=== PATIENT | female | born 1960 | race Caucasian/White ===

== ENCOUNTER 2019-08-12 08:13 | Day surgery (SDC) | payer MEDICAID ==
[2019-08-12] MEDS ORDERED: Sodium Chloride 0.9% 1,000 ML IV SCH (08:45)
[2019-08-12] MEDS ORDERED: Propofol 200 MG/20 ML SDV ONE (09:29)
[2019-08-12] MEDS ORDERED: Midazolam 1 MG/ML 2 ML SDV ONE (09:30)
[2019-08-12] MEDS ORDERED: fentaNYL 100 MCG/2 ML SDV ONE (09:30)
[2019-08-12] MEDS ORDERED: ceFAZolin 2 GM in Premix Bag 1 BAG IV ONE (09:30)
--- NOTE | 2019-08-12 17:54 | OR ---
DATE OF PROCEDURE: 08/12/2019 SURGEON: Christos Mcelroy MD PROCEDURES: 1. Colonoscopy. 2. Endoscopic hemorrhoid banding. COMPLICATIONS: None. PLANER STONE: None. PREOPERATIVE DIAGNOSIS: Blood in stool. POSTOPERATIVE DIAGNOSIS: Blood in stool. RISKS: Risks, benefits, alternatives, and limitations including, but not limited to, infection, bleeding, and perforation were explained to the patient who wished to proceed. PROCEDURE IN DETAIL: The patient was placed in a left lateral decubitus position. Digital rectal exam was performed which showed mild external hemorrhoids which were non-thrombosed. The scope was then introduced and advanced atraumatically to the ileocecal valve. The ileocecal valve was cannulated. No evidence of inflammation of the ileum. The scope was brought back to the ascending, transverse, descending colon, and retroflexed. No diverticulosis. No polyps. No old or new blood. The patient did have an internal hemorrhoid, which most likely was the etiology behind the bleeding. Therefore, the scope was then exchanged for an endoscopic hemorrhoid banding system. Two bands were applied across the offending hemorrhoid. The patient tolerated the procedure well. Christos Mcelroy MD /[id number]
--- OUTSIDE RECORDS SUMMARY | 2019-08-16 11:45 | XMSREPORT | Referral Summary ---
:1960 Author Organization [facility] and [facility] s Address [facility] [place] [address] Care Team Providers Name Role Phone Aj Samano MD Primary Care Provider Rashawn Samano MD Attributed Provider Reason for Referral Comprehensive Primary Care Plus (Routine) Status Reason Specialty Diagnoses / Referred By Referred To Procedures Contact Contact New Request General Surgery Diagnoses Hematochezia Aj Samano, [facility] [address] [place] [address] [place] [phone] Phone: Fax: Scheduling Instructions This is an electronic referral. Transitions of Care (Routine) Status Reason Specialty Diagnoses / Referred By Referred To Procedures Contact Contact New Request Patient Diagnoses Hematochezia Aj Samano Chi Preference D, MD [facility], [address] [place] [place], [place] [address] [address] Phone: [place] [phone] [place] [address] Fax: Reason for Visit Reason Comments bloody stools, bleeding Encounter Details Date Type Department Care Team Description 08/02/2019 Office Visit [place] Amos, Ciro donald (Primary [facility]DIV[facility] Dx) [address] [facility] [address] [place], [place] [address] [phone] [id number] Allergies Active Allergy Reactions Severity Noted Date Comments Leflunomide Other (Specify in Comments) 03/30/2019 Nausea,vomiting Methotrexate Other (Specify in Comments) 03/30/2019 Nausea, vomiting documented as of this encounter (statuses as of 08/02/2019) Medications Medication Sig Dispensed Refills Start Date End Date Status gabapentin (NEURONTIN) Take 800 mg by 0 03/18/2019 Active 300 mg capsule mouth 1 time per day Take 2 capsules twice daily and 3 capsules at bedtime. escitalopram (LEXAPRO) Take 10 mg by 0 02/15/2019 Active 10 mg tablet mouth 1 time per day Multiple Take 1 tablet by 0 Act carine Vitamins-Minerals mouth 1 time per (MULTIVITAMIN day THERAPEUTIC WITH MINERALS) tablet vitamin D3, Take 2,000 Units 0 A ctive cholecalciferol, 1000 by mouth 1 time units tablet per day acetaminophen Take 1,000 mg by 0 Active (TYLENOL) 500 mg mouth Every 4 tablet hours as needed omeprazole (PRILOSEC) Take 1 capsule 60 capsule 1 05/16/2019 Active 20 mg (20 mg) by mouth capsuleIndications: 1 time a day in Epigastric pain the morning meloxicam (MOBIC) 15 Take 1 tablet (15 90 tablet 1 07/25/2019 Active mg tabletIndications: mg) by mouth 1 Rheumatoid arthritis time per day involving multiple sites with positive rheumatoid factor (HCC) magnesium oxide 250 MG Take 250 mg by 0 Active TABS mouth calcium carbonate 600 Take 600 mg by 0 Active mg tablet mouth 2 times a day with meals Zinc (ZINC) 50 MG CAPS Take 50 mg by 0 Active mouth lactobacillus Take 1 capsule by 0 Active (CULTURELLE) capsule mouth documented as of this encounter (statuses as of 08/02/2019) Active Problems Problem Noted Date Rheumatoid arthritis involving multiple sites with pos itive rheumatoid 03/30/2019 factor documented as of this encounter (statuses as of 08/02/2019) Immunizations Name Administration Dates Next Due Influenza Vaccine,unspecified 11/25/2014, 11/17/2013 TDAP 07/06/2013 documented as of this encounter Social History Tobacco Use Types Packs/Day Years Used Date Former Smoker Smokeless Tobacco: Never Used Sex Assigned at Date Recorded Not on file Job Start Date Occupation Industry Not on file Not on file Not on file Travel History Travel Start Travel End No recent travel history available. documented as of this encounter Last Filed Vital Signs Vital Sign Reading Time Taken Comments Blood Pressure 124/80 08/02/2019 9:56 AM CDT Pulse 83 08/02/2019 9:56 AM CDT Temperature 36.1 C (96.9 F) 08/02/2019 9:56 AM CDT Respiratory Rate - - Oxygen Saturation 98% 08/02/2019 9:56 AM CDT Inhaled Oxygen Concentration - - Weight 76.7 kg (169 lb 1.6 oz) 08/02/2019 9:56 AM CDT Height 158.8 cm (5' 2.5") 08/02/2019 9:56 AM CDT Body Mass Index 30.44 08/02/2019 9:56 AM CDT documented in this encounter Progress Notes Aj Samano MD - 08/02/2019 10:15 AM CDT Assessment / Plan Hematochezia - CLINIC REFERRAL ENDOSCOPY NON ONE CHART - CLINIC REFERRAL GENERAL SURGERY ONE CHART Plan: I suspect the bleeding may well be from the hemorrhoids whether internal or external source. However given her clinical picture, I do think colonoscopy is going to be necessary to rule out other etiologies particularly if we are going to look at the surgical consultation regarding possible hemorrhoidsurgery. Patient is agreeable. We will set up colonoscopy and a subsequent general surgery opinion regardingpossible surgical hemorrhoid intervention. Medications Outpatient Medications Prior to Visit Medication Sig Dispense Refill magnesium oxide 250 MG TABS Take 250 mg by mouth calcium carbonate 600 mg tablet Take 600 mg by mouth 2 times a day with meals Zinc (ZINC) 50 MG CAPS Take 50 mg by mouth lactobacillus (CULTURELLE) capsule Take 1 capsule by mouth meloxicam (MOBIC) 15 mg tablet Take 1 tablet (15 mg) by mouth 1 time per day 90 tablet 1 Multiple Vitamins-Minerals (MULTIVITAMIN THERAPEUTIC WITH MINERALS) tablet Take 1 tablet by mouth 1 time per day vitamin D3, cholecalciferol, 1000 units tablet Take 2,000 Units by mouth 1 time per day acetaminophen (TYLENOL) 500 mg tablet Take 1,000 mg by mouth Every 4 hours as needed omeprazole (PRILOSEC) 20 mg capsule Take 1 capsule (20 mg) by mouth 1 time a day in the morning 60 capsule 1 gabapentin (NEURONTIN) 300 mg capsule Take 800 mg by mouth 1 time per day Take 2 capsules twice daily and 3 capsules at bedtime. escitalopram (LEXAPRO) 10 mg tablet Take 10 mg by mouth 1 time per day No facility-administered medications prior to visit. Allergies Allergies Allergen Reactions Leflunomide Other (Specify in Comments) Nausea,vomiting Methotrexate Other (Specify in Comments) Nausea, vomiting Problem List Patient Active Problem List Diagnosis Rheumatoid arthritis involving multiple sites with positive rheumatoid factor (HCC) History And presents today for review of scattered episodes of significant amount of bright red blood with bowel movements. She states the first episode occurred about 3-4 weeks ago. She had painless bowel movement with bright red blood she states the blood seemed to fill the toilet bowl. She had bright red blood on her toilet tissue. She had a couple episodes like that and then she had no further bleeding for about 2-3 weeks and then yesterday morning she had another episode of painless bright red blood. She also noticed a little darker blood with some clots when she wiped after bowel movement. Pain with bowel movement She does note some lower abdominal vague discomfort and cramping and bloating at times. This is notnecessarily associated with the passage of blood. No fevers or chills She has had some intermittent loose stools aren't alternating with formed stools over the last monthor 2. Physical Exam BP 124/80 Pulse 83 Temp 96.9 F (36.1 C) (Temporal) Ht 1.588 m (5' 2.5") Wt 76.7 kg (169 lb 1.6 oz) SpO2 98% BMI 30.44 kg/m2|| Abdomen is soft and nontender with no bloating or distention appreciated today Perianal exam reveals large hemorrhoid presence. Rectal exam was attempted but was too uncomfortable to accomplish. The hemorrhoids themselves did not seem to be particularly tender to palpation externally. documented in this encounter Plan of Treatment Name Type Priority Associated Diagnoses Order S chedule CLINIC REFERRAL ENDOSCOPY Referral Routine Hematochezia Or dered: 08/02/2019 NON ONE CHART CLINIC REFERRAL GENERAL Referral Routine Hematochezia Orde red: 08/02/2019 SURGERY ONE CHART documented as of this encounter Visit Diagnoses Diagnosis Hematochezia - Primary Blood in stool documented in this encounter
== END 2019-08-12 11:35 | disposition home or self-care (01) ==
LOC: JP.SDS 08:13
PROVIDERS: ATTEND Surgery
DX: K64.4 Residual hemorrhoidal skin tags (principal); K64.8 Other hemorrhoids; E66.9 Obesity, unspecified; K21.9 Gastro-esophageal reflux disease without esophagitis; Z88.2 Allergy status to sulfonamides; Z68.29 Body mass index [BMI] 29.0-29.9, adult
CPT/HCPCS: 45398; J0690; J2250; J2704; J3010; J7030

== ENCOUNTER 2021-10-27 12:20 | Emergency (ER) | payer BC, MEDICAID | END 2021-10-27 13:45 | disposition home or self-care (01) | LOC: JP.ED 12:20 | DX: R05.9 Cough, unspecified (principal); U09.9 Post COVID-19 condition, unspecified; Z88.8 Allergy status to other drugs, medicaments and biological substances; Z88.2 Allergy status to sulfonamides; Z79.899 Other long term (current) drug therapy; Z86.16 Personal history of COVID-19; Z90.49 Acquired absence of other specified parts of digestive tract; Z90.710 Acquired absence of both cervix and uterus; Z87.891 Personal history of nicotine dependence | CPT/HCPCS: 99283 ==

== ENCOUNTER 2022-02-05 11:52 | Emergency (ER) | payer BC ==
[2022-02-05] MEDS ORDERED: Dexamethasone 4 MG/ML SDV PO ONE (12:42)
== END 2022-02-05 13:00 | disposition home or self-care (01) ==
LOC: JP.ED 11:52
DX: U07.1 COVID-19 (principal); M19.90 Unspecified osteoarthritis, unspecified site; Z87.891 Personal history of nicotine dependence; Z88.8 Allergy status to other drugs, medicaments and biological substances; Z88.2 Allergy status to sulfonamides; Z79.899 Other long term (current) drug therapy
CPT/HCPCS: 99284; J8540

== ENCOUNTER 2023-02-23 07:56 | Emergency (ER) | payer BC ==
[2023-02-23] MEDS ORDERED: Codeine/guaiFENesin 10-100 MG/5 ML Syrup 5 ML Cup PO ONE (09:21)
[2023-02-23] MEDS ORDERED: Sodium Chloride 0.9% 1,000 ML IV SCH (09:30)
[2023-02-23 09:35] LABS: BASOPHILS ABSOLUTE AUTO 0.03 K/uL (0.00-0.10); BASOPHILS PERCENT AUTO 0.3 % (0.1-1.3); EOSINOPHILS ABSOLUTE AUTO 0.09 K/uL (0.00-0.40); EOSINOPHILS PERCENT AUTO 0.8 % (0.0-5.4); HEMATOCRIT 40.5 % (34.3-46.0); IMMATURE GRAN ABSOLUTE AUTO 0.04 K/uL (0.00-0.23); IMMATURE GRAN PERCENT AUTO 0.4 % (0.0-0.7); LYMPHOCYTES ABSOLUTE AUTO 1.69 K/uL (0.8-3.3); LYMPHOCYTES PERCENT AUTO 15.6 % (11.4-47.7); MEAN CORPUSCULAR HEMOGLOBIN 32.9 pg (31.6-35.5); MEAN CORPUSCULAR HGB CONC 34.6 g/dL (31.6-35.5); MEAN CORPUSCULAR VOLUME 95.3 fL (81.4-99.0); NEUTROPHILS ABSOLUTE AUTO 7.68 K/uL (1.0-7.6); NEUTROPHILS PERCENT AUTO 70.9 % (40.0-78.1); PLATELET COUNT,PLT 496 K/uL (130-375); RED BLOOD CELL COUNT 4.25 M/uL (3.77-5.24); WHITE BLOOD CELL COUNT,WBC 10.8 K/uL (3.2-11.0)
[2023-02-23 09:46] LABS: CORONAVIRUS COVID-19 NAA NEGATIVE (NEGATIVE); INFLUENZA A NAA POSITIVE (NEGATIVE); INFLUENZA B NAA NEGATIVE (NEGATIVE); RESPIRATORY SYNCYTIAL VIR NAA NEGATIVE (NEGATIVE)
[2023-02-23 09:57] LABS: A/G RATIO 0.8 (1.2-2.2); ALANINE AMINOTRANSFERASE,ALT 35 U/L (12-78); ALBUMIN 3.4 g/dL (3.4-5.0); ALKALINE PHOSPHATASE 71 U/L (46-116); ASPARTATE AMNIOTRANSFERASE,AST 18 U/L (15-37); BILIRUBIN TOTAL 0.5 mg/dL (0.2-1.0); BLOOD UREA NITROGEN,BUN 16 mg/dL (7-18); C-REACTIVE PROTEIN 5.25 mg/dL (<0.50); CALCIUM 9.6 mg/dL (8.5-10.1); CARBON DIOXIDE,CO2 26 mmol/L (21-32); CHLORIDE,CL 102 mmol/L (100-108); EST CRCL DRUG DOSING (CG) 46.72 mL/min; ESTIMATED GFR 64 mL/min (>60); GLUCOSE RANDOM 98 mg/dL (74-106); PROTEIN TOTAL,TP 7.5 g/dL (6.4-8.2); SODIUM,NA 138 mmol/L (140-148)
[2023-02-23] MEDS ORDERED: Ketorolac 30 MG/ML SDV IVPUSH ONE (10:10)
== END 2023-02-23 11:21 | disposition home or self-care (01) ==
LOC: JP.ED 07:56
DX: J10.1 Influenza due to other identified influenza virus with other respiratory manifestations (principal); J09.X1 Influenza due to identified novel influenza A virus with pneumonia; Z86.16 Personal history of COVID-19; Z88.2 Allergy status to sulfonamides; Z88.8 Allergy status to other drugs, medicaments and biological substances; Z90.49 Acquired absence of other specified parts of digestive tract; Z90.710 Acquired absence of both cervix and uterus
CPT/HCPCS: 0241U; 36415; 71046; 80053; 84145; 85025; 86140; 96361; 96374; 99284; A9270; J1885; J7030